=== PATIENT | male | born 1945 | race Caucasian/White ===

== ENCOUNTER 2022-12-23 23:22 | Emergency (ER) | payer MEDICARE, OTHER ==
[~2022-12-23] VITALS: Ht 180.3 cm; Wt 75.3 kg
--- NOTE | 2022-12-23 23:45 | NUR ---
BIBRA 86 FOR C/O HIGH BLOOD PRESSURE AT HOME. NON- COMPLIANT WITH BP MEDS. PATIENT IS AOX4. ABLE TO MAKE NEEDS KNOWN. PATIENT EDUCATION DONE BY RN ABOUT COMPLIANCE TO MEDICATION. PLACED COMFORTABLY IN BED. VITALS CHECKED.
--- NOTE | 2022-12-24 00:10 | NUR ---
IV CAROL G18 INSERTED ON RIGHT AC. BLOOD DRAWN AND SENT TO LAB
[2022-12-24 00:20] LABS: BASOPHILS # (AUTO) 0.1 K/uL (0.0-0.2); EOSINOPHILS % (AUTO) 4.1 % (0.0-6.0); HEMATOCRIT 44 % (39-51); HEMOGLOBIN 14.6 g/dL (13.5-17.5); LYMPHOCYTES # (AUTO) 1.3 K/uL (0.8-4.8); LYMPHOCYTES % (AUTO) 19.6 % (20.0-44.0); MEAN CORPUSCULAR HGB CONC 34 g/dl (31.0-36.0); MEAN CORPUSCULAR VOLUME 96 fL (80-96); MONOCYTES # (AUTO) 0.7 K/uL (0.1-1.30); MONOCYTES % (AUTO) 11.1 % (2.0-12.0); NEUTROPHILS # (AUTO) 4.3 K/uL (1.8-8.9); NEUTROPHILS % (AUTO) 64.2 % (43.0-81.0); PLATELET COUNT (AUTO) 221 K/uL (150-450); RED BLOOD CELL COUNT(AUTO) 4.53 MIL/uL (4.5-6.0); WHITE BLOOD COUNT (AUTO) 6.7 K/uL (4.3-11.0)
[2022-12-24 00:38] LABS: ALANINE AMINOTRANSFERASE 29 U/L (12-78); ALKALINE PHOSPHATASE 88 U/L (46-116); ASPARTATE AMINOTRANSFERASE 15 U/L (15-37); BILIRUBIN,DIRECT 0.2 mg/dL (0.0-0.2); BILIRUBIN,TOTAL 0.5 mg/dL (0.2-1.0); CALCIUM, SERUM 9.5 mg/dL (8.5-10.1); CARBON DIOXIDE 29 mmol/L (21-32); CHLORIDE 106 mmol/L (98-107); CREATININE 1.2 mg/dL (0.6-1.3); GLUCOSE 109 mg/dL (74-106); POTASSIUM 4.1 mmol/L (3.5-5.1); SODIUM SERUM 143 mmol/L (136-145); TOTAL PROTEIN, SERUM 7.5 g/dL (6.4-8.2); UREA NITROGEN, BLOOD 24 mg/dL (7-18)
--- NOTE | 2022-12-24 00:50 | NUR ---
CAME BACK FROM CT DEPT
--- NOTE | 2022-12-24 01:16 | NUR ---
URINAL OFFERED TO PATIENT
--- NOTE | 2022-12-24 01:16 | NUR ---
BP RECHECKED. 151/72mmHg with HR 89. DR ROBERTS MADE AWARE. SHE WILL HOLD APRESOLINE ORDER
[2022-12-24] MEDS ORDERED: hydrALAZINE HCL IV 20 MG VIAL IV ONE (01:30)
--- NOTE | 2022-12-24 01:33 | NUR ---
URINE SPECIMEN SENT TO LAB
[2022-12-24 02:03] LABS: BILIRUBIN,URINE NEGATIVE (NEGATIVE); COLOR,URINE YELLOW (YELLOW); LEUKOCYTE ESTERASE ,URINE NEGATIVE (NEGATIVE); NITRITE, URINE NEGATIVE (NEGATIVE); PROTEIN,URINE NEGATIVE (NEGATIVE); UGLUCOSE NEGATIVE (NEGATIVE); UROBILINOGEN,URINE 0.2 EU/dL (0.2)
--- NOTE | 2022-12-24 03:19 | NUR ---
FF UP STATRAD, RESULTS MIGHT BE OUT IN 30 MINS PER STAFF
--- NOTE | 2022-12-24 05:27 | NUR ---
IV CAROL REMOVED
[2022-12-24 05:28] VITALS: BP 130/71
== END 2022-12-24 05:29 | disposition home or self-care (01) ==
LOC: ER 23:49
DX: I10 Essential (primary) hypertension (principal); R51.9 Headache, unspecified; E78.5 Hyperlipidemia, unspecified; I48.91 Unspecified atrial fibrillation
CPT/HCPCS: 36415; 70450-TC; 71045-TC; 80048-TC; 80076-TC; 84484-TC; 85025-TC; 85730-TC